=== PATIENT | female | born 1950 | race Caucasian/White ===

== ENCOUNTER 2016-07-25 13:03 | Outpatient (CLI) | payer OTHER ==
--- NOTE | 2016-07-26 17:13 | DIAGNOSTIC IMAGING REPORT ---
REFERRING PHYSICIAN/PROVIDER: Mohamud Chapa MD CONSULTING ASSISTANT CLINICAL NURSE MANAGER: Sunday Her MD PROCEDURE: M-mode 2D echocardiography with spectral and color flow Doppler TECHNICAL QUALITY: Study quality was technically adequate. INDICATION: BREAST CA RHYTHM DURING PROCEDURE: The patient is in normal sinus rhythm during the exam. INTERPRETATIONS: LEFT VENTRICLE: Left ventricle is normal in size. Left ventricular wall thickness is at the upper limits of normal. There appears to be echogenic linear findings as above aortic valve. In some views, it gives the appearance of a supra-aortic membrane but continuous wave Doppler shows no evidence of increased velocity that would suggest obstruction. This could also be atherosclerosis or plaque along the aortic wall. There is no ventricular septal defect visualized. Left ventricular systolic function is normal without focal wall motion abnormalities. The ejection fraction is estimated to be 60-65%. Assessment of diastolic parameters indicates normal left ventricular diastolic function and normal filling pressures. RIGHT VENTRICLE: The right ventricle is normal in size and function. ATRIA: The left atrium is borderline dilated. The right atrial size is normal. The interatrial septum is intact with no gross evidence for an atrial septal defect. MITRAL VALVE: The mitral valve is normal in structure and function. There is trace mitral regurgitation. AORTIC VALVE: The aortic valve is trileaflet. Aortic valve opens well and there is trace aortic regurgitation. TRICUSPID VALVE: The tricuspid valve is normal in structure and function without regurgitation. Pulmonary artery pressures could not be estimated because of the lack of a measurable TR jet velocity. PULMONIC VALVE: The pulmonic valve is not well seen, but is grossly normal. There is trace or physiologic amount of pulmonic regurgitation. GREAT VESSELS: The aorta root is normal size. The dimensions of the ascending aorta are normal. The IVC is of normal diameter and collapses greater than 50% the sniff suggestive of a low right atrial pressure of 3 mmHg. PERICARDIUM: The pericardium shows no evidence of pericardial effusion. IMPRESSION: 1. Normal LV and RV systolic function with no evidence of LV diastolic dysfunction. 2. Appearance of a echogenic linear findings as above aortic valve which possibly can be a supra-aortic membrane but continuous wave Doppler measurement shows no evidence of significant obstruction. Other possibility is atherosclerosis or plaque along the aortic wall. 3. The left atrium is borderline dilated. The right atrial size is normal. 4. The aorta root is normal size. The ascending aorta is also normal.
[2016-08-02] MEDS ORDERED: MULTIVITAMIN1 TAB PO (18:19)
[2016-08-02] MEDS ORDERED: ST JOHNS WORT PO (18:20)
[2016-08-02] MEDS ORDERED: VALERIAN PO ×2 (18:20→18:22)
[2016-08-02] MEDS ORDERED: FIBER0.52 GM PO (18:21)
== END 2016-07-25 23:00 ==
LOC: US SRH 13:03
DX: C50.919 Malignant neoplasm of unspecified site of unspecified female breast (principal)

== ENCOUNTER 2016-07-29 08:55 | Outpatient (CLI) | payer OTHER ==
--- NOTE | 2016-07-29 11:27 | DIAGNOSTIC IMAGING REPORT ---
PROCEDURE: CT ABD/PELVIS WITH CONTRAST CLINICAL INDICATION: BREAST CA; ELVEATED LFT'S TECHNIQUE: 125 ml of Isovue 300 were injected intravenously and axial images were obtained of the entire abdomen and pelvis with sagittal and coronal reformations. COMPARISON: None. FINDINGS: ABDOMEN: 3 mm right basilar nodule. Normal heart size. Hepatic steatosis but no evidence of liver masses. The gallbladder, pancreas, spleen, adrenal glands and kidneys are normal. Mild atherosclerosis of the aorta. Mild diverticulosis of the ascending, transverse and descending colon. PELVIS: Normal appendix. Mild sigmoid diverticulosis. Uterus, adnexa and bladder are unremarkable. No inflammatory changes or free fluid. Moderate degenerative changes of the spine. No suspicious osseous lesions. IMPRESSION: 1. 3 mm right basilar nodule, indeterminate but likely a granuloma/post inflammatory 2. Hepatic steatosis 3. Mild diverticulosis 4. No evidence of metastatic disease All CT scans at this facility use dose modulation, iterative reconstruction, and/or weight-based dosing when appropriate to reduce radiation dose to as low as reasonably achievable.
[2016-08-02] MEDS ORDERED: MULTIVITAMIN1 TAB PO (18:19)
[2016-08-02] MEDS ORDERED: ST JOHNS WORT PO (18:20)
[2016-08-02] MEDS ORDERED: VALERIAN PO ×2 (18:20→18:22)
[2016-08-02] MEDS ORDERED: FIBER0.52 GM PO (18:21)
== END 2016-07-29 23:00 ==
LOC: CT SRH 08:55
DX: C50.912 Malignant neoplasm of unspecified site of left female breast (principal)

== ENCOUNTER 2016-08-04 10:12 | Day surgery (SDC) | payer OTHER ==
[~2016-08-04 10:12] MED LIST: FIBER0.52 GM PO; MULTIVITAMIN1 TAB PO; ST JOHNS WORT PO; VALERIAN PO
[2016-08-04] MEDS ORDERED: PERCOCET1 TA1 PO (11:54)
--- NOTE | 2016-08-04 11:56 | Provider's Discharge Care Plan ---
Problem, Goal, Plan Problem List 1. S/P LEFT BREAST LUMPECTOMEY AXILLARY NODE SAMPLING Goals: Improve disease control, Therapeutic intervention Instructions: Follow up as directed, Take meds as directed
--- NOTE | 2016-08-04 14:53 | OPERATIVE REPORT ---
DATE OF SURGERY: 08/04/2016 SURGEON: Maki Mitchell III, MD CHEMICAL RECLAMATION EQUIPMENT OPERATOR: None. PREOPERATIVE DIAGNOSIS: 1. Left breast infiltrating ductal carcinoma POSTOPERATIVE DIAGNOSIS: 1. Left breast infiltrating ductal carcinoma. PROCEDURES PERFORMED: 1. Left breast lumpectomy and left axillary level 1 lymph node dissection ANESTHESIA: General endotracheal. INDICATIONS: The patient is a 65-year-old female with a lump in her left breast, which was positive for needle aspiration indicated infiltrating ductal carcinoma. Also had a lymph node aspirated as well, which showed metastatic disease. After explaining her options of treatment and her consultation with Oncology, it was decided by the patient and her oncologist to have lumpectomy and a level 1 lymph node dissection. SURGICAL FINDINGS: The patient was noted to have a 3 x 3 cm mass approximately 1 fingerbreadth below the areola in the medial inferior aspect of her breast. Ink margins appeared grossly negative, the axillary 1 lymph nodes were prominent and palpable. SURGICAL TECHNIQUE: The patient was brought to the operating room and placed in the dorsal supine position where she underwent general endotracheal anesthesia by the anesthesiology department. After proper anesthesia had taken effect, the patient 's left breast, chest, and axilla and proximal upper arm were prepped using Betadine and draped in a sterile fashion. The palpated mass was once again identified. This site was infiltrated using local anesthetic. A curvilinear incision made below the areola on the left, carried out laterally. This incision incorporated the surrounding breast tissue and the mass insuring myself of margins, the lesion was excised sharply, handed off the field and sent to pathology for frozen section. It was recommended that we take some more of the breast tissue superiorly from our specimen. This was performed sharply and the surface towards the tumor was marked using a suture ligature. The specimen was handed off the field. The wound was irrigated copiously with warm normal saline. Hemostasis achieved using electrocautery. The wound was closed in layers using 3-0 Polysorb and the skin approximated using running 4-0 subdermal Polysorb and Steri-Strips. Changing out instrumentation and gloves, the axilla was palpated. There were no dominant palpable nodes. At approximately 4 fingerbreadths below the base of the axilla, this site was infiltrated with usual local anesthetic. A transverse incision made and carried down through skin and subcutaneous tissue. Dissection continued down onto what may have been the axillary tail of Omar and dissected up into the base of the axilla. The palpable nodes were dissected free along with fatty tissue using electrocautery dissection, handed off the field and sent to pathology. Hemostasis achieved using electrocautery and 3-0 Vicryl ties. The wound was irrigated copiously with warm normal saline and antibiotic solution. A Paramjit-Andres drain was placed in the depths of the wound and brought out through a separate stab wound incision in the lateral chest and secured using 3- 0 nylon. The Paramjit-Andres drain was trimmed to length and attached to bulb suction. After assurance of proper hemostasis, the incision was closed using 4-0 subdermal Polysorb continuous suture. A sterile pressure occlusive dressing was placed over the site. The patient tolerated the procedure well, was extubated and transferred to the recovery room in stable condition. There were no intraoperative or anesthetic complications.
== END 2016-08-04 16:15 | disposition home or self-care (01) ==
LOC: OR SRH 10:12 → OB SRH 10:17
PROVIDERS: Specialist
PROC: 07B60ZX Excision of Left Axillary Lymphatic, Open Approach, Diagnostic (ICD-10-PCS; principal; 2016-08-04 12:00)
PROC: 0HBU0ZX Excision of Left Breast, Open Approach, Diagnostic (ICD-10-PCS; principal; 2016-08-04 12:00)
DX: C50.312 Malignant neoplasm of lower-inner quadrant of left female breast (principal); C77.3 Secondary and unspecified malignant neoplasm of axilla and upper limb lymph nodes

== ENCOUNTER 2016-08-22 09:30 | Day surgery (SDC) | payer OTHER ==
[~2016-08-22] VITALS: Ht 170.2 cm; Wt 79.4 kg
[~2016-08-22 09:30] MED LIST changes: +PERCOCET1 TA1 PO
[2016-08-22] MEDS ORDERED: HYCET1 ML PO (12:26)
--- NOTE | 2016-08-22 12:28 | DIAGNOSTIC IMAGING REPORT ---
PROCEDURE: XR PICC/PORT PLACEMENT W/C-ARM INDICATION: BREAST CANCER TECHNIQUE: C-arm fluoroscopy provided to Dr. Mitchell for Port-A-Cath placement Fluoroscopy time 1.03-minute 12.3 mGy). COMPARISON: None. FINDINGS: AP and lateral C-arm views. The tip of the Port-A-Cath is in the SVC. IMPRESSION: 1. C-arm fluoroscopy for Port-A-Cath placement (performed by Dr. Mitchell
--- NOTE | 2016-08-22 12:28 | Provider's Discharge Care Plan ---
Problem, Goal, Plan Problem List 1. S/P PORT-A-CATH PLACEMENT Goals: Improve disease control, Therapeutic intervention Instructions: Follow up as directed, Take meds as directed
--- NOTE | 2016-08-22 12:28 | Provider's Discharge Care Plan ---
Problem, Goal, Plan Problem List 1. S/P PORT-A-CATH PLACEMENT Goals: Improve disease control, Therapeutic intervention Instructions: Follow up as directed, Take meds as directed
[2016-08-22 13:14] VITALS: BP 169/93
--- NOTE | 2016-08-22 13:29 | DIAGNOSTIC IMAGING REPORT ---
PROCEDURE: XR CHEST 1 VIEW INDICATION: BREAST CANCER TECHNIQUE: Portable AP view 12:51 p.m. COMPARISON: None. FINDINGS: Port-A-Cath placed on the right, tip in the SVC. Lungs are clear. Heart and mediastinum are normal. Thorax is normal. IMPRESSION: 1. Port-A-Cath in good position. Lungs clear.
--- NOTE | 2016-08-22 20:39 | OPERATIVE REPORT ---
DATE OF SURGERY: 08/22/2016 SURGEON: Maki Mitchell III, MD MAINTENANCE GROUNDSKEEPER: None. PREOPERATIVE DIAGNOSIS: 1. Stage III left breast carcinoma POSTOPERATIVE DIAGNOSIS: 1. Stage III left breast carcinoma PROCEDURE PERFORMED: 1. Right subclavian percutaneous access for PowerPort reservoir placement ANESTHESIA: TIVA. Local, 1% Xylocaine with epinephrine. ESTIMATED BLOOD LOSS: Minimal. FLUIDS: 200 mL lactated Ringers. PATHOLOGY SPECIMEN: None. IMPLANTS: PowerPort reservoir. INDICATIONS: The patient is a 65-year-old female recently diagnosed with stage III infiltrating ductal carcinoma of the left breast and is scheduled for chemotherapy, requiring venous access. SURGICAL FINDINGS: Tip of catheter, superior vena cava and innominate junction. SURGICAL TECHNIQUE: The patient was brought to the operating room and placed in the dorsal supine position where she was administered TIVA and monitored closely by anesthesia. The patient's right supraclavicular region, neck and chest were prepped using Betadine and draped in a sterile fashion. A site was selected in the lateral one -third of the clavicle, 2-3 fingerbreadths below, infiltrated using local anesthetic. The needle was then used to percutaneously access the subclavian catheter. Good aspiration of blood. A floppy tip J-wire was passed under fluoroscopic guidance into the right ventricle. The needle was removed. A small sandy was placed at the junction of the skin and the exit site of the wire. A site was selected in the superior chest, infiltrated using local anesthetic. A curvilinear incision was made. This was carried down through skin and subcutaneous tissue. Hemostasis achieved using electrocautery. A pocket was created using a combination of electrocautery and blunt dissection. An introducer was placed beneath the subcutaneous tissue and exited at the site where the wire exited the skin. The Silastic catheter was attached to this and pulled beneath the subcutaneous tissue. The Silastic catheter was filled with heparinized solution. Over the floppy tipped J-wire, the introducer and peel-away sheath was passed under fluoroscopic guidance. The wire and the introducer were withdrawn, leaving the peel-away catheter in place, through which the distal portion of the Silastic catheter was passed into the right ventricle. The peel-away catheter was removed. The catheter was withdrawn to approximately the second intercostal space position, noted on fluoroscopy, trimmed to length and attached to a heparin-filled PowerPort reservoir. The reservoir was then placed in its pocket and secured using 3-0 Polysorb. Hemostasis was achieved. The skin was approximated using running 4-0 subdermal Polysorb and Steri-Strips. A sterile pressure occlusive dressing was placed over the site. The PowerPort was accessed using a Thomas needle, getting good blood return, and irrigated with heparinized saline. A sterile occlusive dressing was applied. The patient tolerated the procedure well and was transferred to the recovery room in stable condition. There were no intraoperative or anesthetic complications.
== END 2016-08-22 14:16 | disposition home or self-care (01) ==
LOC: OR SRH 09:30 → SCU SRH 09:34 → OR SRH 10:30
PROVIDERS: Specialist
PROC: 02HV33Z Insertion of Infusion Device into Superior Vena Cava, Percutaneous Approach (ICD-10-PCS; principal; 2016-08-22 10:30)
PROC: B5181ZA Fluoroscopy of Superior Vena Cava using Low Osmolar Contrast, Guidance (ICD-10-PCS; principal; 2016-08-22 10:30)
PROC: 0JH63XZ Insertion of Tunneled Vascular Access Device into Chest Subcutaneous Tissue and Fascia, Percutaneous Approach (ICD-10-PCS; principal; 2016-08-22 10:30)
DX: C50.312 Malignant neoplasm of lower-inner quadrant of left female breast (principal); C77.3 Secondary and unspecified malignant neoplasm of axilla and upper limb lymph nodes

== ENCOUNTER 2016-11-28 23:24 | Emergency (ER) | payer OTHER ==
[~2016-11-28 23:24] MED LIST changes: +HYCET1 ML PO
--- NOTE | 2016-11-29 03:20 | ED CLINICAL REPORT ---
Clinical Report - Physicians/Mid Levels [facility] [address] [place] [address] 11/28/2016 23:24 Patient: GILSON YO Time Seen: 2354; initial patient contact. Arrived- By private vehicle. Historian- patient. HISTORY OF PRESENT ILLNESS Chief Complaint: SKIN RASH. This started several days ago and is still present. It was gradual in onset and has been constant. It is described as painful and burning. It has been located on the left chest and back. A cause has been identified (Blistering and olivas from radiation Tx for breast Ca). No recent medication. Similar symptoms previously: None. Recent medical care: Not recently seen/assessed. REVIEW OF SYSTEMS The patient has had fever, muscle aches, chills and fatigue. No sore throat or throat, cough, difficulty breathing or enlarged lymph nodes. No headache, eye irritation, nausea, diarrhea or vomiting. No sweats, nasal congestion, runny nose, sinus pain or mouth sores. No cough, difficulty breathing or difficulty with urination. All systems otherwise negative, except as recorded above. PAST HISTORY Breast Cancer SURGERIES: Bilateral Tubal Ligation. Lumpectomy of breast. Port A cath. Medications: Percocet Oral, every 4 hours as needed. Tylenol Oral. Chemotherapy. Phenergan (Promethazine) Oral. Zofran ODT Oral. Allergies: No Known Drug Allergy. SOCIAL HISTORY Never smoker. No alcohol use or drug use. ADDITIONAL NOTES The nursing notes have been reviewed. PHYSICAL EXAM Vital Signs: 11/28/2016 23:41 BP: 138/55. HR: 111. RR: 18. O2 saturation: 96%. Temp: 99.9 F. Pain level now: 5/10. Have been reviewed. Hypotensive. Tachycardic. Respiratory rate normal. Temperature normal. Oxygen saturation normal. Appearance: Alert. Oriented X3. No acute distress. Eyes: Conjunctivae and eyelids normal. ENT: Pharynx normal. Neck: Neck supple. No lymphadenopathy. CVS: Tachycardia. Heart sounds normal. Normal rhythm. Respiratory: No respiratory distress. Breath sounds normal. Abdomen: Nontender. No organomegaly. Skin: Skin warm and dry. Normal skin color. Medium area of cellulitis with tenderness, erythema and warmth to the chest and back. Neuro: Oriented X 3. LABS, X-RAYS, AND EKG Laboratory Tests: UA-Culture if indicated: (RAMIRO: 11/29/2016 00:28) ( MsgRcvd 11/29/2016 01:08) Final results Test Result Flag Units (Reference) URINE COLOR YELLOW URINE APPEARANCE CLEAR URINE GLUCOSE NEGATIVE (NEGATIVE) URINE BILIRUBIN NEGATIVE (NEGATIVE) URINE KETONE TRACE (NEGATIVE) URINE SPECIFIC GRAVITY 1.020 (1.010-1.030) URINE PH 6.0 (5.0-8.0) URINE PROTEIN NEGATIVE (NEGATIVE) URINE UROBILINOGEN 0.2 EU/dL (0.2-1.0) URINE NITRITE NEGATIVE (NEGATIVE) URINE BLOOD NEGATIVE (NEGATIVE) URINE LEUK ESTERASE NEGATIVE (NEGATIVE) URINE RBC NONE SEEN rbc/hpf (0-1) URINE WBC RARE wbc/hpf (0-1) URINE EPITHELIAL CELLS 0-1 EPI/hpf (0-5) URINE BACTERIA FEW (1+) (NONE SEEN) URINE COMMENT CULT NOT INDICATED URINE CULTURES ARE SET-UP BASED ON THE FOLLOWING CRITERIA:POSITIVE NITRITEPOSITIVE LEUKOCYTE ESTERASEGREATER THAN 10 WHITE BLOOD CELLSMODERATE (2+) OR GREATER BACTERIA CBC w Diff: (RAMIRO: 11/29/2016 00:00) ( MsgRcvd 11/29/2016 01:14) Final results Test Result Flag Units (Reference) WHITE BLOOD COUNT 9.7 K/uL (4.5-11.5) CORRECTED WBC 9.6 K/uL RED BLOOD COUNT 2.79 L M/uL (4.00-5.20) HEMOGLOBIN 9.8 L gm/dL (12.0-16.0) HEMATOCRIT 28.4 L % (36.0-46.0) MEAN CELL VOLUME 102 H fL (80-100) MEAN CORPUSCULAR HGB 35 H pg (26-34) MEAN CORPUSCULAR HGB CONC 35 g/dL (31-37) RED CELL DISTRIBUTION WIDTH 16.1 H % (11.6-14.8) PLATELET COUNT 118 L K/uL (150-400) NEUTROPHIL % 90.0 H % (50-75) LYMPH % 4.7 L % (25-40) MONO % 4.1 % (3-14) EOSINOPHIL % 1.2 % (0-4) BASOPHIL % 0 % (0-2) POLY % 81 H % (50-75) BAND % 8 % (0-8) LYMPH 7 L % (25-40) MONO 3 % (3-14) EOSINOPHIL % 1 % (0-4) BASOPHIL % 0 % (0-2) METAMYELOCYTE % 0 % (0-1) MYELOCYTE 0 % (0-1) NUCLEATED RED BLOOD CELL 1 (0-1) OTHER CELL TYPE 0 POLYCHROMASIA 2+ ANISOCYTOSIS 1+ MACROCYTOSIS 1+ [id number]: (RAMIRO: 11/29/2016 01:32) ( [facility] 11/29/2016 02:22) Final results Test Result Flag Units (Reference) LACTIC ACID (SEPSIS) FOLLOWUP 2.0 mmol/L (0.4-2.0) [id number]: (RAMIRO: 11/29/2016 00:00) ( [facility] 11/29/2016 00:56) Final results Test Result Flag Units (Reference) LACTIC ACID SEPSIS PROTOCOL 3.1 H mmol/L (0.4-2.0) CRITICAL RESULTS CALLEDCalled to DANIKA RETANA RN 11/29/16 0054Were 2 patient identifiers used? YWas the result read back? Y [id number]: (RAMIRO: 11/29/2016 00:00) ( [facility] 11/29/2016 00:57) Final results Test Result Flag Units (Reference) PROCALCITONIN 0.2 ng/mL (0-0.5) PCT Concentration: Interpretation : Risk/option for action PCT <=0.5 ng/mL : Systemic : Low risk forinfection(sepsis): progression to severeis not likely. : systemic infection.Local bacterial : CAUTION-PCT levelsinfection is : below 0.5 ng/mL do notpossible. : exclude an infection,because localizedinfections (withoutsystemic signs) may beassociated with suchlow levels. If PCT ismeasured very earlyafter a bacterialchallenge (usually <6hours), these valuesmay still be low. Inthis case PCT shouldbe re-assessed 6-24hours later. PCT >0.5 and : Systemic infection: Moderate risk for<= 2 ng/mL : (sepsis) is : progression to severepossible, but : systemic infection.other conditions : The patient should beare known to : closely monitoredelevate PCT. : both clinically andby re-assessing PCTwithin 6-24 hours. PCT > 2 ng/mL : Systemic infection: High risk for(sepsis) is likely: progression to severeunless other : systemic infection.causes are known. : PCT >= 10 ng/mL : Important systemic: High likelihood ofinflammatory : severe sepsis orresponse, almost : septic shock.exclusively due to:severe bacterial :sepsis or septic :shock. : CMP: (RAMIRO: 11/29/2016 00:00) ( MsgRcvstacy 11/29/2016 00:40) Final results Test Result Flag Units (Reference) GLUCOSE 269 H mg/dL (70-110) BUN 7 mg/dL (7-18) CREATININE 0.8 mg/dL (0.6-1.3) Estimated GFR >60 mL/min Estimated GFR- >60 mL/min Note: Persistent reduction over 3 months in eGFR<60 mL/min/1.73 m2 defines CKD. Patients with eGFR values>=60 mL/min/1.73 m2 may also have CKD if evidence ofpersistent proteinuria. Additional information may be foundat www.kidney.org. SODIUM 133 L mmol/L (136-145) POTASSIUM 4.2 mmol/L (3.5-5.1) CHLORIDE 99 mmol/L (98-107) CARBON DIOXIDE 23 mmol/L (21-32) CALCIUM 8.2 L mg/dL (8.5-10.1) TOTAL PROTEIN 6.6 g/dL (6.4-8.2) ALBUMIN 3.1 L g/dL (3.3-5.0) BILIRUBIN, TOTAL 0.7 mg/dL (0.0-1.0) ALKALINE PHOSPHATASE 138 H U/L (46-116) AST (SGOT) 39 H U/L (15-37) ALT (SGPT) 50 U/L (12-78) Culture, Strep Screen: (RAMIRO: 11/29/2016 00:32) ( MsgRcvd 11/29/2016 01:00) Final results Test Result Flag Units (Reference) RAPID STREP SCREEN - THROAT DATE: 11/29/16 NEGATIVE SCREEN: RAPID STREP SCREEN NEGATIVE; CONFIRMATION TO FOLLOW Rapid Influenza Screen: (RAMIRO: 11/29/2016 00:31) ( Mscvd 11/29/2016 01:02) Final results SPECIMEN DESCRIPTION: ... Test Result Flag Units (Reference) RAPID INFLUENZA SCREEN DATE: 11/29/16 INFLUENZA A: NEGATIVE SCREEN FOR INFLUENZA A INFLUENZA B: NEGATIVE SCREEN FOR INFLUENZA B . PROGRESS AND PROCEDURES Discussed case with patient's primary care provider, (call returned 02:50 Dr. Mathey, agreed on Tx for cellulitis). Disposition: Discharged home in good condition. Condition: good. (Electronically signed by Alex Mack Dr. 11/29/2016 3:21) Addenda for GILSON YO VisitID: [id number] Date: 11/28/2016 11/29/2016 3:39 Impression: Cellulitis Rx's for Clindamycin 300 q6 x 1 week and Mupirocin 2% (Electronically signed by Alex Mack Dr. - 11/29/2016 3:39)
--- NOTE | 2016-11-29 03:20 | ED NURSING NOTES ---
Clinical Report - Nurses [facility] [place] [address] 11/28/2016 23:24 Patient: GILSON YO TRIAGE Triage time 23:41. Acuity: LEVEL 3. Chief Complaint: FEVER and CHILLS and FATIGUE and MUSCLE ACHES (Flu Like). --23:52 Mary Perera R.N. 23:41 11/28/16. BP: 138/55 taken on the left arm, while lying. HR: 111 (regular and tachycardic). RR: 18. O2 saturation: 96% on room air. Temp: 99.9 F (oral). Pain level now: 11/16. --23:52 Mary Perera R.N. Weight: 78.4 kg stated. Height/Length: 67 inches Per Patient. BMI: 27.1. --23:44 Mary Perera R.N. Medications Zofran ODT Oral. --23:49 Mary Perera R.N. Phenergan (Promethazine) Oral. --23:49 Mary Perera R.N. Chemotherapy. --23:49 Mary ePrera R.N. Tylenol Oral. --23:50 Mary Perera R.N. Percocet Oral, every 4 hours as needed. --23:51 Mary Perera R.N. Allergies No Known Drug Allergy. --23:44 Mary Perera R.N. History Arrived by private vehicle. Historian: patient. Accompanied by family. Primary physician (Steve). This started today. ( states feels pain in hips and in general,). SOCIAL HX: Never smoker. No alcohol use or drug use. The patient was not exposed to tuberculosis, influenza, chicken pox, meningitis, MRSA, VRE, C-diff, SARS, Eric flu, H1N1 flu, Ebola or MERS. No known contact with a sick individual. ABUSE ASSESSMENT: No report of abuse. SELF HARM ASSESSMENT: A self harm assessment was performed. The patient answered "no" to the question "Have you recently felt down, depressed, or hopeless?", "Have you noticed less interest or pleasure in doing things?", "Do you have thoughts of harming or killing yourself?", "Are you here because you tried to hurt yourself?", "Have you ever tried to hurt yourself before today?", "Have you recently had thoughts about harming or killing others?" and "Do you have any dangerous items in your possession?". FALL RISK ASSESSMENT: Fall risk assessment completed. No fall risk identified. NUTRITIONAL RISK ASSESSMENT: The nutritional risk assessment revealed no deficiencies. FUNCTIONAL ASSESSMENT: Functional assessment: no impairments noted. LEARNING NEEDS ASSESSMENT: The learning needs assessment revealed no barriers. SKIN INTEGRITY ASSESSMENT: Skin integrity risk assessment completed. No skin integrity risk identified. --23:52 Mary Perera R.N. PROBLEMS: Cancer [Active]. --23:51 Mary Perera R.N. ADDITIONAL SURGERIES: Bilateral Tubal Ligation. Lumpectomy of breast. --23:51 Mary Perera R.N. Interventions ID band on patient. --23:52 Mary Perera R.N. PHYSICAL ASSESSMENT To room via wheelchair. GENERAL / NEURO / PSYCH: Alert. Oriented X 4. Appears in no acute distress. HEENT: Pupils equal, round and reactive to light. Mucous membranes are pink. RESPIRATORY: Respirations not labored. Chest nontender. Breath sounds within normal limits. CVS: Normal sinus rhythm noted. Cardiac rhythm: sinus tachycardia. Capillary refill less than 2 seconds. Pulses within normal limits. GI / : Abdomen soft and nontender and normal bowel sounds. SKIN: Skin intact. Skin is warm and dry. Normal skin turgor. --23:52 Mary Perera R.N. NURSING PROGRESS NOTES Two patient identifiers checked. Call light placed in reach of patient. Side rails up x 2. Bed placed in lowest position. Brakes of bed on. --23:52 Mary Perera R.N. Patient ready for evaluation- chart flagged. --23:52 Mary Perera R.N. 23:53 11/28/2016 Site #1 started via IV in the left antecubital space with an 20g angiocath, with aseptic technique and good blood return; one attempt. Blood drawn: rainbow set and cultures x2. Labeled in the presence of the patient and sent to the lab. Saline lock flushed with 10 mL saline. --23:53 Mary Perera R.N. 00:36 11/29/2016 Started bag #1 1000 mL IV Fluids IV NS (Saline); bolus of 1000 mL wide open via site #1. Allergies verified and confirmed 5 rights. IV patency established. IV site checked: no pain, redness, or swelling. IV flushed thoroughly pre- and post-medication administration. --00:36 Mary Perera R.N. 00:36 11/29/2016 Morphine IVP 4 mg given over 2 minute(s) via site #1. Allergies verified, confirmed 5 rights and sedative warning given to the patient. IV patency established. IV site checked: no pain, redness, or swelling. IV flushed thoroughly pre- and post-medication administration. IVP given by RN. --00:36 Mary Perera R.N. Patient ID band checked for patient name and birthdate: patient confirmed. Instructions provided to collect clean catch urine and patient verbalized understanding. Clean catch urine collected with return of yellow-colored clear urine; sample sent to lab for urinalysis. Specimen labeled in the presence of the patient. Patient ID band checked for patient name: patient confirmed. Flu swab obtained by RN via nasal swab. Labeled in the presence of the patient and sent to lab. Patient ID band checked for patient name and birthdate: patient confirmed. Throat swab obtained for rapid strep and culture; labeled in the presence of the patient and sent to lab. --00:37 Mary Perera R.N. GENERAL / NEURO / PSYCH: Alert. Oriented X 4. RESPIRATORY: No respiratory distress. Breath sounds normal. GI / : Bowel sounds within normal limits. SKIN: Skin is warm and dry. --00:37 Mary Perera R.N. 00:40 11/29/16. BP: 130/44. HR: 107. RR: 16. O2 saturation: 92% on room air. Temp: 98.5 F (oral). Pain level now: 10. --00:42 Dilma, Mary, R.N. ( redraw Lactic when IVF complete). Critical value relayed to ED by Desiree in Lab. Critical value received by pablo. Lactate level: 3.1. Critical value read back. ED physician notifed of critical value. Orders were received. --00:58 Mary Perera R.N. 01:10 11/29/2016 Morphine IVP Response: pain is gone now. Symptoms have improved the patient feels better. --01:44 Mary Perera R.N. 01:44 11/29/2016 IV Fluids IV NS Discontinued: bag #1 completed. Total amount infused: 1000 mL. IV patency established. IV site checked: no pain, redness, or swelling. IV flushed thoroughly. --01:44 Mary Perera R.N. Patient ID band checked for patient name: patient confirmed. Blood samples drawn from the peripheral IV site with syringe by nurse per protocol ; labeled in presence of the patient: lipscomb top. Line flushed with 10 mL normal saline post blood draw. The patient reports no complaints and she is calm and resting quietly. Overall patient status is improved- she states feels better. GENERAL / NEURO / PSYCH: Alert. Oriented X 4. RESPIRATORY: No respiratory distress. Breath sounds normal. GI / : Bowel sounds within normal limits. SKIN: Skin is warm and dry. --01:57 aMry Perera R.N. 03:03 11/29/2016 Clindamycin PO 300 mg given. Allergies verified and confirmed 5 rights. --03:03 Ronny Roman 03:03 11/29/2016 Mupirocin Topical. Applied to the left chest. Allergies verified and confirmed 5 rights. --03:03 Ronny Roman DISPOSITION / DISCHARGE 03:45 11/29/2016 Site #1 removed upon discharge. Catheter intact. Manual pressure and bandage applied. --03:47 Mary Perera R.N. Condition at departure: improved and stable. No learning barriers present. Discharge instructions provided and reviewed with the patient and family. Reviewed medication(s) side effects, precautions, dosing and course information. Prescription(s) given to the patient. Patient and family verbalized understanding. Written instructions provided in Albanian. The patient was discharged home and accompanied by family. She left the Emergency Department ambulatory and via private vehicle. Family member driving. --03:49 Mary Perera R.N. 03:45 11/29/16. BP: 105/49. HR: 91 (regular and normal rate). RR: 18 (regular and unlabored). O2 saturation: 96% on room air. Temp: 98.7 F (oral). Pain level now: 0/10. --03:49 Mary Perera R.N. Departure time: 0345. --03:49 Mary Perera R.N. Locked/Released at 11/29/2016 3:49 by Mary Perera R.N.
--- NOTE | 2016-11-29 03:20 | ED ORDER SUMMARY ---
..... Patient: GILSON YO OrderSheet [facility] VisitID: [id number] [address] [place] [address] 65y, F Registration Date/Time: 11/28/2016 ORDER SHEET Weight: 78.4 kg (stated) Allergies: No Known Drug Allergy GENERAL ORDERS: Blood Culture (No) (N/A) Urgent (00:18 11/29/2016 Jeniffer Armas) (Ack 0:23 CHategekimana) (0:24 CBradburn R.N.) Chest 2V Urgent (00:19 11/29/2016 Jeniffer Armas) (Ack 0:23 CHategekimana) (0:30 GUnger) Rapid Influenza Screen (Nasal Pharyngeal) (...) Urgent (00:19 11/29/2016 Jeniffer Armas) (Ack 0:23 CHategekimana) (0:34 CBradburn R.N.) CBC w Diff Urgent (00:20 11/29/2016 Jeniffer Armas) (Ack 0:22 CHategekimana) (0:24 CBradburn R.N.) CMP Urgent (00:20 11/29/2016 Jeniffer Armas) (Ack 0:22 CHategekimana) (0:24 CBradburn R.N.) UA-Culture if indicated Urgent (00:20 11/29/2016 Jeniffer Armas) (Ack 0:22 CHategekimana) (0:32 CBradburn R.N.) Lactic Acid for Sepsis Protocol Urgent (00:20 11/29/2016 Jeniffer Armas) (Ack 0:23 CHategekimana) (0:24 CBradburn R.N.) PCT (Procalcitonin) Urgent (00:20 11/29/2016 Jeniffer Armas) (Ack 0:23 CHategekimana) (0:24 CBradburn R.N.) Culture, Strep Screen Urgent (00:20 11/29/2016 Jeniffer Armas) (Ack 0:23 CHategekimana) (0:35 CBradburn R.N.) Lactic Acid for Sepsis Protocol Urgent (01:46 11/29/2016 Destiny R.NNicolas verbal order read back to Jeniffer Armas) (Ack 1:50 David) (1:56 Destiny R.N.) MEDICATION ORDERS: Clindamycin PO 300 mg (NOW) (02:51 11/29/2016 Jeniffer Armas) (3:03 Karsten R.N.) Mupirocin Topical 1 application (NOW) (02:53 11/29/2016 Jeniffer Armas) (3:03 Karsten R.N.) IV FLUIDS: IV NS : initial bolus none -, then 1000 mL/hr for X1 (NOW) (00:18 11/29/2016 Jeniffer Armas) (Ack 0:25 Destiny R.N.) (0:36 Destiny R.N.) Morphine IV 4 mg (HIGH ALERT MEDICATION, NOW) (00:19 11/29/2016 Jeniffer Armas) (Ack 0:25 Destiny R.N.) (0:36 Destiny R.N.) ORDER SHEET NOTES: [Electronically signed by Alex Mack Dr. (03:21 11/29/2016)] [Electronically signed by Mary Perera R.N. (03:49 11/29/2016)] [Electronically locked/signed by Mary Perera R.N. (03:49 11/29/2016)]
--- NOTE | 2016-11-29 03:20 | ED ORDER SUMMARY ---
..... Patient: GILSON YO OrderSheet [facility] VisitID: [id number] [address] [place] [address] 65y, F Registration Date/Time: 11/28/2016 ORDER SHEET Weight: 78.4 kg (stated) Allergies: No Known Drug Allergy GENERAL ORDERS: Blood Culture (No) (N/A) Urgent (00:18 11/29/2016 Jeniffer Armas) (Ack 0:23 CHategekimana) (0:24 CBradburn R.N.) Chest 2V Urgent (00:19 11/29/2016 Jeniffer Armas) (Ack 0:23 CHategekimana) (0:30 GUnger) Rapid Influenza Screen (Nasal Pharyngeal) (...) Urgent (00:19 11/29/2016 Jeniffer Armas) (Ack 0:23 CHategekimana) (0:34 CBradburn R.N.) CBC w Diff Urgent (00:20 11/29/2016 Jeniffer Armas) (Ack 0:22 CHategekimana) (0:24 CBradburn R.N.) CMP Urgent (00:20 11/29/2016 Jeniffer Armas) (Ack 0:22 CHategekimana) (0:24 CBradburn R.N.) UA-Culture if indicated Urgent (00:20 11/29/2016 Jeniffer Armas) (Ack 0:22 CHategekimana) (0:32 CBradburn R.N.) Lactic Acid for Sepsis Protocol Urgent (00:20 11/29/2016 Jeniffer Armas) (Ack 0:23 CHategekimana) (0:24 CBradburn R.N.) PCT (Procalcitonin) Urgent (00:20 11/29/2016 Jeniffer Armas) (Ack 0:23 CHategekimana) (0:24 CBradburn R.N.) Culture, Strep Screen Urgent (00:20 11/29/2016 Jeniffer Armas) (Ack 0:23 CHategekimana) (0:35 CBradburn R.N.) Lactic Acid for Sepsis Protocol Urgent (01:46 11/29/2016 Destiny R.NNicolas verbal order read back to Jeniffer Armas) (Ack 1:50 David) (1:56 Destiny R.N.) MEDICATION ORDERS: Clindamycin PO 300 mg (NOW) (02:51 11/29/2016 Jeniffer Armas) (3:03 Karsten R.N.) Mupirocin Topical 1 application (NOW) (02:53 11/29/2016 Jeniffer Armas) (3:03 Karsten R.N.) IV FLUIDS: IV NS : initial bolus none -, then 1000 mL/hr for X1 (NOW) (00:18 11/29/2016 Jeniffer Armas) (Ack 0:25 Destiny R.N.) (0:36 Destiny R.N.) Morphine IV 4 mg (HIGH ALERT MEDICATION, NOW) (00:19 11/29/2016 Jeniffer Armas) (Ack 0:25 Destiny R.N.) (0:36 Destiny R.N.) ORDER SHEET NOTES: [Electronically signed by Alex Mack Dr. (03:21 11/29/2016)] [Electronically signed by Mary Perera R.N. (03:49 11/29/2016)] [Electronically locked/signed by Mary Perera R.N. (03:49 11/29/2016)]
--- NOTE | 2016-11-29 03:20 | ED CLINICAL REPORT ---
Clinical Report - Physicians/Mid Levels [facility] [address] [place] [address] 11/28/2016 23:24 Patient: GILSON YO Time Seen: 2354; initial patient contact. Arrived- By private vehicle. Historian- patient. HISTORY OF PRESENT ILLNESS Chief Complaint: SKIN RASH. This started several days ago and is still present. It was gradual in onset and has been constant. It is described as painful and burning. It has been located on the left chest and back. A cause has been identified (Blistering and olivas from radiation Tx for breast Ca). No recent medication. Similar symptoms previously: None. Recent medical care: Not recently seen/assessed. REVIEW OF SYSTEMS The patient has had fever, muscle aches, chills and fatigue. No sore throat or throat, cough, difficulty breathing or enlarged lymph nodes. No headache, eye irritation, nausea, diarrhea or vomiting. No sweats, nasal congestion, runny nose, sinus pain or mouth sores. No cough, difficulty breathing or difficulty with urination. All systems otherwise negative, except as recorded above. PAST HISTORY Breast Cancer SURGERIES: Bilateral Tubal Ligation. Lumpectomy of breast. Port A cath. Medications: Percocet Oral, every 4 hours as needed. Tylenol Oral. Chemotherapy. Phenergan (Promethazine) Oral. Zofran ODT Oral. Allergies: No Known Drug Allergy. SOCIAL HISTORY Never smoker. No alcohol use or drug use. ADDITIONAL NOTES The nursing notes have been reviewed. PHYSICAL EXAM Vital Signs: 11/28/2016 23:41 BP: 138/55. HR: 111. RR: 18. O2 saturation: 96%. Temp: 99.9 F. Pain level now: 5/10. Have been reviewed. Hypotensive. Tachycardic. Respiratory rate normal. Temperature normal. Oxygen saturation normal. Appearance: Alert. Oriented X3. No acute distress. Eyes: Conjunctivae and eyelids normal. ENT: Pharynx normal. Neck: Neck supple. No lymphadenopathy. CVS: Tachycardia. Heart sounds normal. Normal rhythm. Respiratory: No respiratory distress. Breath sounds normal. Abdomen: Nontender. No organomegaly. Skin: Skin warm and dry. Normal skin color. Medium area of cellulitis with tenderness, erythema and warmth to the chest and back. Neuro: Oriented X 3. LABS, X-RAYS, AND EKG Laboratory Tests: UA-Culture if indicated: (RAMIRO: 11/29/2016 00:28) ( MsgRcvd 11/29/2016 01:08) Final results Test Result Flag Units (Reference) URINE COLOR YELLOW URINE APPEARANCE CLEAR URINE GLUCOSE NEGATIVE (NEGATIVE) URINE BILIRUBIN NEGATIVE (NEGATIVE) URINE KETONE TRACE (NEGATIVE) URINE SPECIFIC GRAVITY 1.020 (1.010-1.030) URINE PH 6.0 (5.0-8.0) URINE PROTEIN NEGATIVE (NEGATIVE) URINE UROBILINOGEN 0.2 EU/dL (0.2-1.0) URINE NITRITE NEGATIVE (NEGATIVE) URINE BLOOD NEGATIVE (NEGATIVE) URINE LEUK ESTERASE NEGATIVE (NEGATIVE) URINE RBC NONE SEEN rbc/hpf (0-1) URINE WBC RARE wbc/hpf (0-1) URINE EPITHELIAL CELLS 0-1 EPI/hpf (0-5) URINE BACTERIA FEW (1+) (NONE SEEN) URINE COMMENT CULT NOT INDICATED URINE CULTURES ARE SET-UP BASED ON THE FOLLOWING CRITERIA:POSITIVE NITRITEPOSITIVE LEUKOCYTE ESTERASEGREATER THAN 10 WHITE BLOOD CELLSMODERATE (2+) OR GREATER BACTERIA CBC w Diff: (RAMIRO: 11/29/2016 00:00) ( MsgRcvd 11/29/2016 01:14) Final results Test Result Flag Units (Reference) WHITE BLOOD COUNT 9.7 K/uL (4.5-11.5) CORRECTED WBC 9.6 K/uL RED BLOOD COUNT 2.79 L M/uL (4.00-5.20) HEMOGLOBIN 9.8 L gm/dL (12.0-16.0) HEMATOCRIT 28.4 L % (36.0-46.0) MEAN CELL VOLUME 102 H fL (80-100) MEAN CORPUSCULAR HGB 35 H pg (26-34) MEAN CORPUSCULAR HGB CONC 35 g/dL (31-37) RED CELL DISTRIBUTION WIDTH 16.1 H % (11.6-14.8) PLATELET COUNT 118 L K/uL (150-400) NEUTROPHIL % 90.0 H % (50-75) LYMPH % 4.7 L % (25-40) MONO % 4.1 % (3-14) EOSINOPHIL % 1.2 % (0-4) BASOPHIL % 0 % (0-2) POLY % 81 H % (50-75) BAND % 8 % (0-8) LYMPH 7 L % (25-40) MONO 3 % (3-14) EOSINOPHIL % 1 % (0-4) BASOPHIL % 0 % (0-2) METAMYELOCYTE % 0 % (0-1) MYELOCYTE 0 % (0-1) NUCLEATED RED BLOOD CELL 1 (0-1) OTHER CELL TYPE 0 POLYCHROMASIA 2+ ANISOCYTOSIS 1+ MACROCYTOSIS 1+ [id number]: (RAMIRO: 11/29/2016 01:32) ( [facility] 11/29/2016 02:22) Final results Test Result Flag Units (Reference) LACTIC ACID (SEPSIS) FOLLOWUP 2.0 mmol/L (0.4-2.0) [id number]: (RAMIRO: 11/29/2016 00:00) ( [facility] 11/29/2016 00:56) Final results Test Result Flag Units (Reference) LACTIC ACID SEPSIS PROTOCOL 3.1 H mmol/L (0.4-2.0) CRITICAL RESULTS CALLEDCalled to DANIKA RETANA RN 11/29/16 0054Were 2 patient identifiers used? YWas the result read back? Y [id number]: (RAMIRO: 11/29/2016 00:00) ( [facility] 11/29/2016 00:57) Final results Test Result Flag Units (Reference) PROCALCITONIN 0.2 ng/mL (0-0.5) PCT Concentration: Interpretation : Risk/option for action PCT <=0.5 ng/mL : Systemic : Low risk forinfection(sepsis): progression to severeis not likely. : systemic infection.Local bacterial : CAUTION-PCT levelsinfection is : below 0.5 ng/mL do notpossible. : exclude an infection,because localizedinfections (withoutsystemic signs) may beassociated with suchlow levels. If PCT ismeasured very earlyafter a bacterialchallenge (usually <6hours), these valuesmay still be low. Inthis case PCT shouldbe re-assessed 6-24hours later. PCT >0.5 and : Systemic infection: Moderate risk for<= 2 ng/mL : (sepsis) is : progression to severepossible, but : systemic infection.other conditions : The patient should beare known to : closely monitoredelevate PCT. : both clinically andby re-assessing PCTwithin 6-24 hours. PCT > 2 ng/mL : Systemic infection: High risk for(sepsis) is likely: progression to severeunless other : systemic infection.causes are known. : PCT >= 10 ng/mL : Important systemic: High likelihood ofinflammatory : severe sepsis orresponse, almost : septic shock.exclusively due to:severe bacterial :sepsis or septic :shock. : CMP: (RAMIRO: 11/29/2016 00:00) ( MsgRcvstacy 11/29/2016 00:40) Final results Test Result Flag Units (Reference) GLUCOSE 269 H mg/dL (70-110) BUN 7 mg/dL (7-18) CREATININE 0.8 mg/dL (0.6-1.3) Estimated GFR >60 mL/min Estimated GFR- >60 mL/min Note: Persistent reduction over 3 months in eGFR<60 mL/min/1.73 m2 defines CKD. Patients with eGFR values>=60 mL/min/1.73 m2 may also have CKD if evidence ofpersistent proteinuria. Additional information may be foundat www.kidney.org. SODIUM 133 L mmol/L (136-145) POTASSIUM 4.2 mmol/L (3.5-5.1) CHLORIDE 99 mmol/L (98-107) CARBON DIOXIDE 23 mmol/L (21-32) CALCIUM 8.2 L mg/dL (8.5-10.1) TOTAL PROTEIN 6.6 g/dL (6.4-8.2) ALBUMIN 3.1 L g/dL (3.3-5.0) BILIRUBIN, TOTAL 0.7 mg/dL (0.0-1.0) ALKALINE PHOSPHATASE 138 H U/L (46-116) AST (SGOT) 39 H U/L (15-37) ALT (SGPT) 50 U/L (12-78) Culture, Strep Screen: (RAMIRO: 11/29/2016 00:32) ( MsgRcvd 11/29/2016 01:00) Final results Test Result Flag Units (Reference) RAPID STREP SCREEN - THROAT DATE: 11/29/16 NEGATIVE SCREEN: RAPID STREP SCREEN NEGATIVE; CONFIRMATION TO FOLLOW Rapid Influenza Screen: (RAMIRO: 11/29/2016 00:31) ( Mscvd 11/29/2016 01:02) Final results SPECIMEN DESCRIPTION: ... Test Result Flag Units (Reference) RAPID INFLUENZA SCREEN DATE: 11/29/16 INFLUENZA A: NEGATIVE SCREEN FOR INFLUENZA A INFLUENZA B: NEGATIVE SCREEN FOR INFLUENZA B . PROGRESS AND PROCEDURES Discussed case with patient's primary care provider, (call returned 02:50 Dr. Mathey, agreed on Tx for cellulitis). Disposition: Discharged home in good condition. Condition: good. (Electronically signed by Alex Mack Dr. 11/29/2016 3:21) Addenda for GILSON YO VisitID: [id number] Date: 11/28/2016 11/29/2016 3:39 Impression: Cellulitis Rx's for Clindamycin 300 q6 x 1 week and Mupirocin 2% (Electronically signed by Alex Mack Dr. - 11/29/2016 3:39)
--- NOTE | 2016-11-29 03:50 | ED MED RECONCILIATION SUMMARY ---
Patient: GILSON YO Medication Reconciliation Report [facility] VisitID: [id number] [address] [place] [address] 65y, F Registration Date/Time: 11/28/2016 Weight: 78.4 kg Height/Length: 67 in. BMI: 27.1 ALLERGIES: No Known Drug Allergy The patient's Home Medications are listed below: THE FOLLOWING MEDICATIONS NEED TO BE RECONCILED: Chemotherapy Percocet Oral, every 4 hours Phenergan (Promethazine) Oral Tylenol Oral Zofran ODT Oral The source(s) of the original Home Medication information: Not obtained. The following Medications were given to the patient in the Emergency Department: IV NS IV Fluids bolus 1000 mL wide open, administered: 11/29/2016 12:36:00 AM Morphine [IVP] IVP 4 mg, administered: 11/29/2016 12:36:00 AM Clindamycin [PO] PO 300 mg, administered: 11/29/2016 3:03:00 AM Mupirocin [Topical] Topical, administered: 11/29/2016 3:03:00 AM The following Medications were prescribed to the patient: None.
--- NOTE | 2016-11-29 03:50 | ED MAR SUMMARY ---
..... Medication Administration Record [facility] [address] [place] [address] Patient: GILSON YO Visit ID: [id number] 65y, F Weight: 78.4 kg Height/Length: 67 in BMI: 27.1 ALLERGIES: No Known Drug Allergy Start 00:36 11/29/2016 Mary Perera R.N., Stop 01:44 11/29/2016 Mary Perera R.N. Medication Administered: IV NS (SALINE), Dose: IV Fluids, Bolus: 1000 mL wide open, Dispensed: 1000 mL bag, Site: #1 left AC. Medication Ordered: IV NS : initial bolus none -, then 1000 mL/hr for X1 (NOW). Given 00:36 11/29/2016 Mary Perera R.N. Medication Administered: MORPHINE [IVP], Dose: 4 mg IVP over 2 minute(s), Site: #1 left AC. Medication Ordered: Morphine IV 4 mg (HIGH ALERT MEDICATION, NOW). Given 03:03 11/29/2016 Ronny Roman Medication Administered: CLINDAMYCIN [PO], Dose: 300 mg PO. Medication Ordered: Clindamycin PO 300 mg (NOW). Given 03:03 11/29/2016 Ronny Roman Medication Administered: MUPIROCIN [TOPICAL], Dose: Topical. Medication Ordered: Mupirocin Topical 1 application (NOW).
--- NOTE | 2016-11-29 03:50 | ED MED RECONCILIATION SUMMARY ---
Patient: GILSON YO Medication Reconciliation Report [facility] VisitID: [id number] [address] [place] [address] 65y, F Registration Date/Time: 11/28/2016 Weight: 78.4 kg Height/Length: 67 in. BMI: 27.1 ALLERGIES: No Known Drug Allergy The patient's Home Medications are listed below: THE FOLLOWING MEDICATIONS NEED TO BE RECONCILED: Chemotherapy Percocet Oral, every 4 hours Phenergan (Promethazine) Oral Tylenol Oral Zofran ODT Oral The source(s) of the original Home Medication information: Not obtained. The following Medications were given to the patient in the Emergency Department: IV NS IV Fluids bolus 1000 mL wide open, administered: 11/29/2016 12:36:00 AM Morphine [IVP] IVP 4 mg, administered: 11/29/2016 12:36:00 AM Clindamycin [PO] PO 300 mg, administered: 11/29/2016 3:03:00 AM Mupirocin [Topical] Topical, administered: 11/29/2016 3:03:00 AM The following Medications were prescribed to the patient: None.
--- NOTE | 2016-11-29 03:50 | ED MAR SUMMARY ---
..... Medication Administration Record [facility] [address] [place] [address] Patient: GILSON YO Visit ID: [id number] 65y, F Weight: 78.4 kg Height/Length: 67 in BMI: 27.1 ALLERGIES: No Known Drug Allergy Start 00:36 11/29/2016 Mary Perera R.N., Stop 01:44 11/29/2016 Mary Perera R.N. Medication Administered: IV NS (SALINE), Dose: IV Fluids, Bolus: 1000 mL wide open, Dispensed: 1000 mL bag, Site: #1 left AC. Medication Ordered: IV NS : initial bolus none -, then 1000 mL/hr for X1 (NOW). Given 00:36 11/29/2016 Mary Perera R.N. Medication Administered: MORPHINE [IVP], Dose: 4 mg IVP over 2 minute(s), Site: #1 left AC. Medication Ordered: Morphine IV 4 mg (HIGH ALERT MEDICATION, NOW). Given 03:03 11/29/2016 Ronny Roman Medication Administered: CLINDAMYCIN [PO], Dose: 300 mg PO. Medication Ordered: Clindamycin PO 300 mg (NOW). Given 03:03 11/29/2016 Ronny Roman Medication Administered: MUPIROCIN [TOPICAL], Dose: Topical. Medication Ordered: Mupirocin Topical 1 application (NOW).
--- NOTE | 2016-11-29 05:45 | DIAGNOSTIC IMAGING REPORT ---
PROCEDURE: XR CHEST 2 VIEW INDICATION: CONGESTION TECHNIQUE: PA and lateral view. COMPARISON: Chest x-ray 08/22/2016 FINDINGS: Small retrocardiac infiltrate. Right subclavian Port-A-Cath in place. Cardiovascular structures are normal. Bony thorax is unremarkable. IMPRESSION: 1. Small retrocardiac infiltrate. 2. Right subclavian Port-A-Cath in place.
== END 2016-11-29 03:45 | disposition home or self-care (01) ==
LOC: ED SRH 23:24
DX: L03.313 Cellulitis of chest wall (principal); L03.312 Cellulitis of back [any part except buttock and flank]; T21.01XA Burn of unspecified degree of chest wall, initial encounter; T31.0 Burns involving less than 10% of body surface; Y84.2 Radiological procedure and radiotherapy as the cause of abnormal reaction of the patient, or of later complication, without mention of misadventure at the time of the procedure
CPT/HCPCS: 90004; 90065; 90074; 90100; 90154; 90159; 91400; 91643; 92031; 93004; 95059

== ENCOUNTER 2017-01-13 10:45 | Outpatient (CLI) | payer OTHER ==
--- NOTE | 2017-01-13 12:04 | DIAGNOSTIC IMAGING REPORT ---
PROCEDURE: DEXA BONE DENSITY STUDY CLINICAL INDICATION: OSTEOPOROSIS, BREAST CA COMPARISON: None. FINDINGS: LUMBAR SPINE: Bone mineral density 0.722. T-score -3.0. Osteoporosis. LEFT HIP: Bone mineral density 0.722. T-score -1.8. Osteopenia. LEFT FEMORAL NECK: Bone mineral density 0.594. T-score -2.3. Osteopenia. (T score greater or equal to -1.0 to: NORMAL) (T score from -1.1 to -2.4: OSTEOPENIA) (T score ess than or equal to -2.5: OSTEOPOROSIS) IMPRESSION: 1. Osteoporosis of the lumbar spine. 2. Osteopenia of the left hip and left femoral neck.
--- NOTE | 2017-01-13 13:08 | DIAGNOSTIC IMAGING REPORT ---
REFERRING PHYSICIAN/PROVIDER: Mohamud Chapa MD CONSULTING TIME STUDY TECHNOLOGIST: Sunday Her MD PROCEDURE: M-mode 2D echocardiography with spectral and color flow Doppler TECHNICAL QUALITY: Technically adequate. INDICATION: EVALUATE LVEF S/P ANTHRACYCLINE FOR BREAST CA RHYTHM DURING PROCEDURE: Normal sinus rhythm. INTERPRETATIONS: LEFT VENTRICLE: The left ventricular ejection fraction is normal with an estimated ejection fraction of 65-70%. The left ventricular diastolic function is consistent with grade 1 or impaired LV relaxation. There are no focal wall motion abnormalities. There is mild LV dyssynchrony. RIGHT VENTRICLE: The right ventricular chamber size and systolic function are both within normal limits. ATRIA: The left atrial chamber size is within normal limits. The right atrial chamber size is within normal limits. MITRAL VALVE: The mitral valve has normal structure and function. There is no evidence of significant mitral regurgitation. AORTIC VALVE: The aortic valve is trileaflet. It opens well. There is trace aortic regurgitation. TRICUSPID VALVE: The tricuspid valve is thin and pliable. There is no evidence of significant tricuspid regurgitation. The right ventricular systolic pressure could not be estimated because of the lack of a measurable TR jet velocity. PULMONIC VALVE: The pulmonic valve is not well visualized but is grossly normal. There is no evidence of pulmonic regurgitation. GREAT VESSELS: The aorta root is normal size. The ascending aorta is measured at 3.0 cm which is within normal limits. The aortic arch is normal in size. The IVC is of normal size and collapses more than 50% during respiration. This is consistent with a low right atrial pressure of 3 mmHg. PERICARDIUM: There is no evidence of pericardial effusion. IMPRESSION: 1. LV systolic function is normal with an estimated ejection fraction of 65-70%. LV grade 1 diastolic dysfunction. 2. RV systolic function and chamber size are both within normal limits. RV systolic pressure could not be estimated. 3. Biatrial chamber sizes are both within normal limits. 4. No significant valvular heart disease. 5. The great vessels are within normal limits.
== END 2017-01-13 23:00 | disposition home or self-care (01) ==
LOC: XR SRH 10:45
DX: M81.0 Age-related osteoporosis without current pathological fracture (principal); M85.88 Other specified disorders of bone density and structure, other site

== ENCOUNTER 2017-01-17 09:52 | Outpatient (CLI) | payer OTHER ==
--- NOTE | 2017-01-17 11:42 | DIAGNOSTIC IMAGING REPORT ---
PROCEDURE: CT THORAX ABD PELVIS W/CONT INDICATION: BREAST CANCER TECHNIQUE: 125 ml of Isovue 300 injected intravenously and axial images were obtained of the entire thorax, abdomen, and pelvis with sagittal and coronal reformations. COMPARISON: Chest x-ray 11/29/[address] abdomen/pelvis 07/29/2016. FINDINGS: THORAX: Mild emphysema. Stable 3 mm peripheral right upper lobe nodule (image 33) and 5 mm focal thickening of the right major fissure (image 19). Minor left upper lobe and lingular scarring. Left breast surgical changes and stranding of the left axilla but no evidence of adenopathy. No mediastinal or hilar adenopathy. No effusion. Heart size is normal. No pericardial effusion. Mild degenerative changes of the spine. ABDOMEN: The 1.5 cm calcified gallstone. Hepatic steatosis. There are two new hypoenhancing right hepatic lobe lesions, largest 3 mm. Pancreas spleen, adrenal glands and kidneys are normal. Mild atherosclerosis of the aorta. Mild diverticulosis from the ascending to the descending colon. Mild degenerative changes. PELVIS: Normal appendix. Mild sigmoid diverticulosis. Uterus and adnexa are normal. Diffuse bladder wall thickening which may be due to decompression versus cystitis. No inflammatory changes, pelvic mass or free fluid. No suspicious osseous lesions. IMPRESSION: 1. Stable 3 mm right upper lobe nodule. There is also an indeterminate 5 mm of focal thickening of the right major fissure. Recommend follow-up. 2. Emphysema 3. Hepatic steatosis with two tiny hypoenhancing lesions, largest 3 mm, which could represent focal fat infiltration versus metastatic disease 4. 1.5 cm gallstone 5. Diverticulosis 6. Bladder wall thickening which may be due to decompression versus cystitis. Correlate clinically. All CT scans at this facility use dose modulation, iterative reconstruction, and/or weight-based dosing when appropriate to reduce radiation dose to as low as reasonably achievable.
== END 2017-01-17 23:00 ==
LOC: CT SRH 09:52
DX: C50.919 Malignant neoplasm of unspecified site of unspecified female breast (principal); R91.1 Solitary pulmonary nodule; J43.9 Emphysema, unspecified; K76.0 Fatty (change of) liver, not elsewhere classified; K76.9 Liver disease, unspecified; K80.80 Other cholelithiasis without obstruction; K57.90 Diverticulosis of intestine, part unspecified, without perforation or abscess without bleeding; N32.9 Bladder disorder, unspecified